=== PATIENT | male | born 1995 | race Caucasian/White ===

== ENCOUNTER 2020-04-22 10:09 | Emergency (ER) | payer SELFPAY ==
[2020-04-22 10:16] VITALS: BP 130/76; PULSE 92; RESP 16; TEMP 36.9; O2SAT 98
--- NOTE | 2020-04-22 10:48 | ED.EAR ---
HPI - Ear Problem General Chief complaint: Ear Stated complaint: right ear pain/poss forgeign object Time Seen by Provider: 04/22/20 10:35 Source: patient Mode of arrival: ambulatory Limitations: no limitations History of Present Illness HPI Narrative: Jose Roberto Myers is a 24 yo male with no PMH who came to express care with R ear pain. Unsure if he has a headphone bud stuck in ear but pain is 10/10. Slept with headphones on last night. Related Data Allergies Allergy/AdvReac Type Severity Reaction Status Date / Time No Known Allergies Allergy Verified 04/22/20 10:22 Review of Systems Review of Systems: Narrative: CONSTITUTIONAL: Denies fever, chills, sweats. EYES: Denies visual changes, redness, discharge. ENT: Denies rhinorrhea, congestion, sore throat, right otalgia. CARDIOVASCULAR: Denies chest pain, palpitations, edema. RESPIRATORY: Denies dyspnea, wheezing, cough GASTROINTESTINAL: Denies abdominal pain, nausea, vomiting, diarrhea. GENITOURINARY: Denies dysuria, hematuria, abnormal discharge SKIN: Denies rash or itching. NEUROLOGIC: Denies numbness, or focal weakness. PSYCHIATRIC: Denies anxiety or depression. PMFSH Past Medical History Medical History No active medical problems Family History Family History Other No active medical problems Social History Social History (Updated 04/22/20 @ 10:52 by Ne Cardenas CNP) Smoking packs per day: 1.0 Smoking cigarettes per day: 20.0 Years smoked: 10 Smoking pack-years: 10.00 Smoking status: Current every day smoker Alcohol intake: never Comments At time of signature, I agree with nursing past medical, surgical, social and family history. There is no relevant family history pertinent to the presenting complaint. Exam Narrative: Exam Narrative: GENERAL: This is a well-nourished, well-developed patient, in moderate distress. HEAD: normocephalic, atraumatic. EYES: Sclera clear/white. Vision is grossly intact. EARS: External ears normal, L auditory canals clear and R auditory canal had black object in ear canal, TMs normal without perforation. Hearing grossly intact. NOSE: External nose normal without nasal discharge, nares without redness, no rhinorrhea. THROAT: Mucous membranes moist, NECK: Neck supple, non-tender CARDIOVASCULAR: Regular rate and rhythm without murmurs, gallops, or rubs. RESPIRATORY: Clear to auscultation. Breath sounds equal bilaterally. No wheezes, rales, or rhonchi. GASTROINTESTINAL: Abdomen soft, SKIN: warm, intact with no suspicious lesions or rash, good texture and turgor. NEURO: awake, alert, and oriented to person, place and time. There were no obvious focal neurologic abnormalities. Steady gait EXTREMITIES: Normal range of motion. BACK: Nontender without deformity Course Course Emergency Course: Removed foreign object from right ear canal-started on eardrops and pain medication Vital Signs Vital signs: Vital Signs Temperature 98.4 F 04/22/20 10:16 Pulse Rate 92 04/22/20 10:16 Respiratory Rate 16 04/22/20 10:16 Blood Pressure 130/76 04/22/20 10:16 Pulse Oximetry 98 04/22/20 10:16 Temperature 98.4 F 04/22/20 10:16 Pulse Rate 92 04/22/20 10:16 Respiratory Rate 16 04/22/20 10:16 Blood Pressure 130/76 04/22/20 10:16 Pulse Oximetry 98 04/22/20 10:16 Procedures Foreign Body Removal Foreign Body #1: Foreign Body Removal Date: 04/22/20 Foreign Body Removal Time: 10:40 Time Out Performed: no Site: right Description of foreign body: other (ear bud) Sedation/Analgesia: none Technique: removal with forceps Confirmed by:: direct visualization Complications: none Post-procedure exam: awake, alert Neurovascular: no change from pre-procedure Medical Decision Making Differential Diagnosis Differentia
== END 2020-04-22 11:07 | disposition home or self-care (01) ==
PROVIDERS: Emergency Provider Nurse Practitioner
DX: T16.1XXA Foreign body in right ear, initial encounter (principal); F17.210 Nicotine dependence, cigarettes, uncomplicated; W45.8XXA Other foreign body or object entering through skin, initial encounter
CPT/HCPCS: 69200; 99213; G0463